=== PATIENT | female | born 1980 | race Caucasian/White ===

== ENCOUNTER 2017-11-27 14:25 | Emergency (ER) | payer OTHER ==
[~2017-11-27] VITALS: Ht 177.8 cm; Wt 142.4 kg
[2017-11-27] MEDS ORDERED: REGLAN10 MG PO (17:51)
[2017-11-27] MEDS ORDERED: NORCO 5/3251 TABLET PO (17:51)
[2017-11-27 19:00] VITALS: BP 131/68
== END 2017-11-27 19:03 | disposition home or self-care (01) ==
LOC: EME 14:25
DX: S09.90XA Unspecified injury of head, initial encounter (principal); F07.81 Postconcussional syndrome; W10.9XXA Fall (on) (from) unspecified stairs and steps, initial encounter; Y93.01 Activity, walking, marching and hiking; M25.561 Pain in right knee; Z88.0 Allergy status to penicillin; Z88.5 Allergy status to narcotic agent
CPT/HCPCS: 70450; 70486; 73564; 99281; 99283